=== PATIENT | female | born 1950 | race Caucasian/White ===

== ENCOUNTER 2020-03-07 11:35 | Outpatient (CLI) | payer MEDICARE, SELFPAY ==
[2020-03-07 12:06] LABS: Basophils Absolute Auto 0.1 K/mm3 (0.0-0.1); Basophils Percent Auto 0.8 % (0.2-1.2); Eosinophils Percent Auto 0.5 % (0-4.4); Hematocrit 32.2 % (37.0-47.0); Hemoglobin 10.2 g/dL (12.0-15.0); Immature Granulocyte Absolute 0.02 K/mm3 (0.00-0.031); Immature Granulocyte Percent A 0.3 % (0-0.5); Immature Platelet Fraction Pct 4.7 % (0.9-11.2); Lymphocytes Percent Auto 32.7 % (18.3-44.2); Mean Corpuscular HGB Conc 31.7 g/dl (32-36); Mean Corpuscular Hemoglobin 34.1 pg (26-34); Mean Corpuscular Volume 107.7 fl (80-100); Mean Platelet Volume 11.1 fl (7.4-10.4); Monocytes Absolute Auto 0.3 K/mm3 (0.1-0.6); Monocytes Percent Auto 5.3 % (2.6-8.5); Neutrophils Absolute Auto 3.9 K/mm3 (1.3-6.7); Neutrophils Percent Auto 60.4 % (45.5-73.1); Platelet Count Result 92 k/mm3 (150-375); Red Blood Count 2.99 M/mm3 (4.2-5.4); Red Cell Distribution Width 16.9 % (11.5-14.5); White Blood Count 6.4 K/mm3 (4.5-10.0)
[2020-03-07 13:34] LABS: Iron 112 ug/dL (37-170)
[2020-03-07 13:43] LABS: Alanine Aminotransferase 22 U/L (4-35); Alkaline Phosphatase 88 U/L (38-126); Anion Gap 7 mmol/L (8-16); Aspartate Amino Transferase 56 U/L (14-36); Bilirubin,Total 0.8 mg/dL (0.2-1.3); Blood Urea Nitrogen 13 mg/dL (7-17); Carbon Dioxide 27 mmol/L (22-30); Chloride 102 mmol/L (98-107); Estimated Glomerular Filt Rate 37; Glucose 87 mg/dL (65-105); Lactate Dehydrogenase 743 U/L (313-618); Potassium 4.1 mmol/L (3.4-5.0); Sodium 136 mmol/L (137-145)
[2020-03-07 13:45] LABS: Percent Iron Saturation 33 % (20-50)
[2020-03-07 14:40] LABS: Folic Acid 3.3 ng/mL (2.76->20)
== END 2020-03-07 11:36 | disposition home or self-care (01) ==
LOC: ANHLAB 11:42
PROVIDERS: Visit Provider Internal Medicine Hematology & Oncology
DX: D61.818 Other pancytopenia (principal)
CPT/HCPCS: 36415; 80053; 82607; 82728; 82746; 83540; 83550; 83615; 85025; 85055

== ENCOUNTER 2020-03-21 13:38 | Outpatient (CLI) | payer MEDICARE, SELFPAY ==
[2020-03-21 17:23] LABS: Immunoglobulin G 2312 mg/dL (700-1600); Immunoglobulin M 67 mg/dL (40-230)
[2020-03-21 17:46] LABS: Immunoglobulin A 951 mg/dL (70-400)
[2020-03-23 22:15] LABS: Kappa\\Lambda Light Chains 1.33 (0.26-1.65); Lambda Light Chain 88.3 mg/L (5.7-26.3)
[2020-03-24 06:06] LABS: Albumin 3.6 g/dL (3.8-4.8); Alpha 1 Globulin 0.2 g/dL (0.2-0.3); Alpha 2 Globulin 0.6 g/dL (0.5-0.9); Beta 1 Globulin 0.5 g/dL (0.4-0.6); Gamma Globulin 2.3 g/dL (0.8-1.7); Protein, Total 7.8 g/dL (6.1-8.1)
== END 2020-03-21 13:39 | disposition home or self-care (01) ==
PROVIDERS: Visit Provider Internal Medicine Hematology & Oncology
DX: R77.9 Abnormality of plasma protein, unspecified (principal)
CPT/HCPCS: 36415; 82784; 83883; 84155; 84165; 86334

== ENCOUNTER 2020-04-18 09:01 | Outpatient (CLI) | payer MEDICARE, SELFPAY ==
[2020-04-18 09:16] LABS: Basophils Absolute Auto 0.1 K/mm3 (0.0-0.1); Basophils Percent Auto 0.8 % (0.2-1.2); Eosinophils Absolute Auto 0.1 K/mm3 (0-0.3); Eosinophils Percent Auto 0.9 % (0-4.4); Hematocrit 36.2 % (37.0-47.0); Hemoglobin 11.6 g/dL (12.0-15.0); Immature Granulocyte Absolute 0.02 K/mm3 (0.00-0.031); Immature Granulocyte Percent A 0.3 % (0-0.5); Lymphocytes Absolute Auto 2.39 K/mm3 (0.9-3.2); Lymphocytes Percent Auto 36.7 % (18.3-44.2); Mean Corpuscular Hemoglobin 34.1 pg (26-34); Mean Corpuscular Volume 106.5 fl (80-100); Mean Platelet Volume 10.3 fl (7.4-10.4); Monocytes Absolute Auto 0.3 K/mm3 (0.1-0.6); Monocytes Percent Auto 4.6 % (2.6-8.5); Neutrophils Absolute Auto 3.7 K/mm3 (1.3-6.7); Neutrophils Percent Auto 56.7 % (45.5-73.1); Platelet Count Result 90 k/mm3 (150-375); Red Cell Distribution Width 14.6 % (11.5-14.5); White Blood Count 6.5 K/mm3 (4.5-10.0)
== END 2020-04-18 09:02 | disposition home or self-care (01) ==
PROVIDERS: Visit Provider Internal Medicine Hematology & Oncology
DX: D61.818 Other pancytopenia (principal)
CPT/HCPCS: 36415; 82607; 85025

== ENCOUNTER 2020-07-26 10:07 | Outpatient (CLI) | payer MEDICARE, SELFPAY ==
[2020-07-26 10:30] LABS: Basophils Absolute Auto 0.1 K/mm3 (0.0-0.1); Eosinophils Absolute Auto 0.1 K/mm3 (0-0.3); Eosinophils Percent Auto 1.1 % (0-4.4); Hematocrit 35.8 % (37.0-47.0); Hemoglobin 11.6 g/dL (12.0-15.0); Immature Granulocyte Absolute 0.01 K/mm3 (0.00-0.031); Immature Granulocyte Percent A 0.2 % (0-0.5); Lymphocytes Absolute Auto 1.99 K/mm3 (0.9-3.2); Lymphocytes Percent Auto 37.8 % (18.3-44.2); Mean Corpuscular HGB Conc 32.4 g/dl (32-36); Mean Corpuscular Hemoglobin 32.5 pg (26-34); Mean Corpuscular Volume 100.3 fl (80-100); Mean Platelet Volume 10.3 fl (7.4-10.4); Monocytes Absolute Auto 0.3 K/mm3 (0.1-0.6); Monocytes Percent Auto 5.9 % (2.6-8.5); Neutrophils Absolute Auto 2.8 K/mm3 (1.3-6.7); Platelet Count Result 98 k/mm3 (150-375); Red Blood Count 3.57 M/mm3 (4.2-5.4); Red Cell Distribution Width 14.8 % (11.5-14.5); White Blood Count 5.3 K/mm3 (4.5-10.0)
[2020-07-26 10:35] LABS: Blood Urea Nitrogen 19 mg/dL (8-26); Carbon Dioxide 27 mmol/L (22-30); Chloride 102 mmol/L (98-109); Estimated Glomerular Filt Rate 30; Glucose 81 mg/dL (70-105); Potassium 4.5 mmol/L (3.5-4.9); Sodium 138 mmol/L (138-146)
[2020-07-26 12:36] LABS: Iron 103 ug/dL (37-170)
[2020-07-26 12:40] LABS: Alanine Aminotransferase 48 U/L (4-35); Albumin Level 3.9 g/dL (3.5-5.1); Alkaline Phosphatase 104 U/L (38-126); Anion Gap 6 mmol/L (8-16); Aspartate Amino Transferase 90 U/L (14-36); Bilirubin,Total 0.8 mg/dL (0.2-1.3); Blood Urea Nitrogen 20 mg/dL (7-17); Calcium 9.3 mg/dL (8.4-10.2); Carbon Dioxide 28 mmol/L (22-30); Chloride 104 mmol/L (98-107); Estimated Glomerular Filt Rate 32; Glucose 85 mg/dL (65-105); Potassium 4.5 mmol/L (3.4-5.0); Sodium 138 mmol/L (137-145)
[2020-07-26 12:48] LABS: Percent Iron Saturation 30 % (20-50)
[2020-07-26 12:53] LABS: Immunoglobulin G 2512 mg/dL (700-1600); Immunoglobulin M 66 mg/dL (40-230)
[2020-07-26 13:17] LABS: Immunoglobulin A 986 mg/dL (70-400)
[2020-07-26 13:46] LABS: Folic Acid 8.7 ng/mL (2.76->20)
[2020-07-28 10:52] LABS: Kappa\\Lambda Light Chains 1.73 (0.26-1.65); Lambda Light Chain 70.3 mg/L (5.7-26.3)
[2020-07-30 04:30] LABS: Albumin 3.7 g/dL (3.8-4.8); Alpha 1 Globulin 0.3 g/dL (0.2-0.3); Alpha 2 Globulin 0.7 g/dL (0.5-0.9); Beta 1 Globulin 0.6 g/dL (0.4-0.6); Gamma Globulin 2.5 g/dL (0.8-1.7); Protein, Total 8.4 g/dL (6.1-8.1)
== END 2020-07-26 10:08 | disposition home or self-care (01) ==
LOC: ANHLAB 10:09
PROVIDERS: PCP Family Medicine Adolescent Medicine; Visit Provider Internal Medicine Hematology & Oncology
DX: D61.818 Other pancytopenia (principal); R77.9 Abnormality of plasma protein, unspecified
CPT/HCPCS: 36415; 80048; 80053; 82607; 82728; 82746; 82784; 83540; 83550; 83883; 84155; 84165; 85025; 86334

== ENCOUNTER → 2020-08-28 07:38 | Outpatient (CLI) | payer MEDICARE, SELFPAY ==
--- NOTE | ~2020-08-28 | XR_ITS ---
EXAMINATION: XR hand BI arthritis min 3V EXAM DATE: 08/28/2020 08:51 INDICATION: M32.9 - Systemic lupus erythematosus, unspecified . TECHNIQUE: Right hand frontal, lateral and oblique projections obtained and reviewed. Left hand fron jose rafael, lateral and oblique projections obtained and reviewed. Catchers projection of both hands. There is no prior study for comparison. FINDINGS: Right hand: There is mild to moderate 1st carpometacarpal joint, otherwise mild polyarticular primary osteoarthritis. No appreciable subluxations. There are no acute fractures or dislocations identifie d. There is no subcutaneous gas. The soft tissue is unremarkable. There are no radiopaque foreign bodies. There are no bony erosions identified. Left hand: There is mild to moderate left 1st metacarpophalangeal joint subluxation; ligamentous laxi ty can be characteristic for lupus. Mild to moderate arthritis at this joint and otherwise relatively mild primary osteoarthritis of the interphalangeal joints. There are no bony erosions identified. Th ere are no acute fractures or dislocations identified. There is no subcutaneous gas. The soft tissu e is unremarkable. Ring. IMPRESSION: 1. Mild to moderate left 1st MCP joint subluxation and arthritis. 2. Right hand polyarticular osteoarthritis, mild to moderate at 1st CMC joint. Reviewed, dictated and finalized at location B. DRAWER
== END ==
PROVIDERS: PCP Family Medicine Adolescent Medicine; Visit Provider Internal Medicine
DX: M32.9 Systemic lupus erythematosus, unspecified (principal); M18.0 Bilateral primary osteoarthritis of first carpometacarpal joints; M19.042 Primary osteoarthritis, left hand; M19.041 Primary osteoarthritis, right hand
CPT/HCPCS: 73130

== ENCOUNTER 2020-08-28 08:19 | Outpatient (CLI) | payer MEDICARE, SELFPAY ==
[2020-08-28 08:50] LABS: Basophils Percent Auto 0.5 % (0.2-1.2); Eosinophils Absolute Auto 0.1 K/mm3 (0-0.3); Eosinophils Percent Auto 1.5 % (0-4.4); Hematocrit 32.5 % (37.0-47.0); Hemoglobin 10.8 g/dL (12.0-15.0); Immature Granulocyte Absolute 0.01 K/mm3 (0.00-0.031); Immature Granulocyte Percent A 0.2 % (0-0.5); Lymphocytes Absolute Auto 1.18 K/mm3 (0.9-3.2); Lymphocytes Percent Auto 29.4 % (18.3-44.2); Mean Corpuscular HGB Conc 33.2 g/dl (32-36); Mean Corpuscular Volume 99.4 fl (80-100); Mean Platelet Volume 10.4 fl (7.4-10.4); Monocytes Absolute Auto 0.4 K/mm3 (0.1-0.6); Neutrophils Absolute Auto 2.3 K/mm3 (1.3-6.7); Neutrophils Percent Auto 58.4 % (45.5-73.1); Platelet Count Result 96 k/mm3 (150-375); Red Blood Count 3.27 M/mm3 (4.2-5.4); Red Cell Distribution Width 15.2 % (11.5-14.5)
[2020-08-28 13:40] LABS: Alanine Aminotransferase 57 U/L (4-35); Albumin Level 3.8 g/dL (3.5-5.1); Alkaline Phosphatase 88 U/L (38-126); Anion Gap 5 mmol/L (8-16); Aspartate Amino Transferase 90 U/L (14-36); Bilirubin,Total 0.7 mg/dL (0.2-1.3); Blood Urea Nitrogen 20 mg/dL (7-17); CRP 2.5 mg/dL (<1.0); Calcium 8.9 mg/dL (8.4-10.2); Carbon Dioxide 27 mmol/L (22-30); Chloride 103 mmol/L (98-107); Estimated Glomerular Filt Rate 37; Glucose 88 mg/dL (65-105); Potassium 4.3 mmol/L (3.4-5.0); Rheumatoid Factor 26.3 IU/ML (<12); Sodium 135 mmol/L (137-145)
[2020-08-29 08:21] LABS: Erythrocyte Sedimentation Rate 117 mm/hr (0-20)
[2020-08-31 11:15] LABS: Anti Cyclic Citrullinated Pept <16 Units (<20)
[2020-09-01 00:15] LABS: Anti Nuclear Antibody Titer >=1:1280 (Negative)
[2020-09-01 09:27] LABS: SS-A >8.0; SS-B <1.0
[2020-09-01 09:41] LABS: SM Antibody <1.0; SM/RNP Antibody <1.0
== END 2020-08-28 08:20 | disposition home or self-care (01) ==
LOC: ANHLAB 08:21
PROVIDERS: PCP Family Medicine Adolescent Medicine; Visit Provider Internal Medicine
DX: M32.9 Systemic lupus erythematosus, unspecified (principal); M19.90 Unspecified osteoarthritis, unspecified site
CPT/HCPCS: 36415; 80053; 85025; 85652; 86038; 86039; 86140; 86200; 86225; 86235; 86430

== ENCOUNTER 2020-09-26 09:26 | Outpatient (CLI) | payer MEDICARE, SELFPAY ==
[2020-09-26 11:02] LABS: Add Urine Microscopic? YES
[2020-09-26 11:03] LABS: Color Urine Light Yellow (Yellow)
[2020-09-26 11:04] LABS: Appearance Urine Sl Cloudy (Clear); Bilirubin Urine Negative (Negative); Blood Urine 2+ (Negative); Glucose Urine UA Negative (Negative); Ketones Urine Negative (Negative); Nitrate Urine Positive (Negative); Protein Urine Negative (Negative); Urobilinogen Urine 0.2 mg/dL (<2.0)
[2020-09-26 11:05] LABS: Leukocyte Esterase Ur 1+ LEU/UL (Negative)
[2020-09-26 11:27] LABS: Squamous Epithelial Cell Urine Moderate /hpf (Few)
[2020-09-26 11:28] LABS: Bacteria Urine 4+ /hpf
== END 2020-09-26 09:27 | disposition home or self-care (01) ==
LOC: ANHLAB 09:28
PROVIDERS: PCP Family Medicine Adolescent Medicine; Visit Provider Internal Medicine
DX: M32.9 Systemic lupus erythematosus, unspecified (principal); M19.90 Unspecified osteoarthritis, unspecified site
CPT/HCPCS: 81001; 87077; 87086; 87088; 87186

== ENCOUNTER 2021-02-27 08:38 | Outpatient (CLI) | payer MEDICARE, SELFPAY ==
--- NOTE | ~2021-02-27 | XR_ITS ---
EXAMINATION: XR chest 2V DATE: 02/27/2021 09:10 INDICATION: Elevated erythrocyte sedimentation rate. TECHNIQUE: Frontal and lateral views of the chest were obtained. COMPARISON: Chest single view 10/25/2014 FINDINGS: There is chronic mild elevation left hemidiaphragm. There is mild atelectasis at the lung b ases. There is a 1.6 cm nodule at the junction of right mid and upper lung zones. No pleural effusion or pneumothorax. The heart size is normal. Median sternotomy wires and mediastinal surgical clips ar e seen, likely from prior coronary artery bypass grafting. IMPRESSION: 1. 1.6 cm nodule at the junction of right mid and upper lung zone suspicious for primary bronchogenic carcinoma. Noncontrast chest CT is recommended. I called this result to Dr. Menendez. 2. Mild atelectasis at the lung bases. Reviewed, dictated and finalized at location A. IMPRESSION: 1. 1.6 cm nodule at the junction of right mid and upper lung zone suspicious fo r primary bronchogenic carcinoma. Noncontrast chest CT is recommended. I called this result to Dr. Menendez. 2. Mild atelectasis at the lung bases.
== END 2021-02-27 08:39 | disposition home or self-care (01) ==
PROVIDERS: PCP Family Medicine Adolescent Medicine; Visit Provider Internal Medicine
DX: R70.0 Elevated erythrocyte sedimentation rate (principal); R91.1 Solitary pulmonary nodule
CPT/HCPCS: 71046

== ENCOUNTER 2021-03-07 09:11 | Outpatient (CLI) | payer MEDICARE, SELFPAY ==
--- NOTE | ~2021-03-07 | CT_ITS ---
EXAMINATION: CT diagnostic chest w con DATE: 03/07/2021 09:49 INDICATION: Lung nodule TECHNIQUE: Transaxial computed tomographic images of the chest were obtained after the administration of 75 cc of Omnipaque 350 intravenous contrast. The dose-length product (DLP) was 344.68 mGy-cm. Ite rative reconstruction was used. COMPARISON: None FINDINGS: There is a 2.1 x 1.5 cm nodule in the superior segment of the right lower lobe. There is de pendent atelectasis. There is mild interlobular septal thickening. No pneumothorax is identified. No pathologically enlarged thoracic lymph nodes are identified. The heart size is normal. There are no p leural effusions. Changes of coronary artery bypass grafting are noted. There is severe thoracic spon dylosis. IMPRESSION: 1. Right lower lobe nodule concerning for primary bronchogenic carcinoma. CT-guided biopsy is recomme nded. Reviewed, dictated and finalized at location A. IMPRESSION: 1. Right lower lobe nodule concerning for primary bronchogenic carcinoma. CT-gu ided biopsy is recommended.
[2021-03-07 09:41] LABS: Estimated Glomerular Filt Rate 34
== END 2021-03-07 09:12 | disposition home or self-care (01) ==
LOC: ANHIMG 09:12
PROVIDERS: PCP Family Medicine Adolescent Medicine; Visit Provider Internal Medicine
DX: R91.8 Other nonspecific abnormal finding of lung field (principal)
CPT/HCPCS: 71260; Q9967

== ENCOUNTER 2021-04-26 09:50 | Outpatient (CLI) | payer MEDICARE, SELFPAY ==
--- NOTE | ~2021-04-26 | US_ITS ---
EXAMINATION: US renal BI EXAM DATE: 04/26/2021 10:43 INDICATION: Type 2 diabetes. TECHNIQUE: Multiple grayscale and Doppler images of the kidneys were obtained (by a technologist who performed the scan) and subsequently reviewed. There is no prior study for comparison. FINDINGS: Right kidney: There is normal contour and echogenicity. It measures 11.1 x 7.2 x 6.4 centimeters. T here are no focal renal lesions identified. There is no hydronephrosis. Left kidney: There is normal contour and echogenicity. It measures 8.8 x 4.1 x 4.7 centimeters. The re are no focal renal lesions identified. There is no hydronephrosis. Bladder unremarkable. Bladder volume was 56 mL, mildly distended. Reportedly patient was unable to v oid further IMPRESSION: Mildly distended bladder, unable to void this could indicate small post void residual. So nographically unremarkable kidneys. Reviewed, dictated and finalized at location A. IMPRESSION: Mildly distended bladder, unable to void this could indicate small post void residual. Sonographically unremarkable kidneys.
== END 2021-04-26 09:51 | disposition home or self-care (01) ==
LOC: ANHIMG 09:51
PROVIDERS: PCP Family Medicine Adolescent Medicine; Visit Provider Internal Medicine Nephrology
DX: E11.9 Type 2 diabetes mellitus without complications (principal); I25.5 Ischemic cardiomyopathy; E78.00 Pure hypercholesterolemia, unspecified; L93.0 Discoid lupus erythematosus; I25.10 Atherosclerotic heart disease of native coronary artery without angina pectoris; I50.22 Chronic systolic (congestive) heart failure; E66.9 Obesity, unspecified; N18.32 Chronic kidney disease, stage 3b
CPT/HCPCS: 76775

== ENCOUNTER 2021-11-16 09:50 | Outpatient (CLI) | payer MEDICARE, SELFPAY ==
[2021-11-21 13:07] LABS: Mitochondrial (M2) Ab (IgG) <=20.0 U (<=20.0)
== END 2021-11-16 09:51 | disposition home or self-care (01) ==
PROVIDERS: PCP Family Medicine Adolescent Medicine; Visit Provider Internal Medicine Gastroenterology
DX: M32.9 Systemic lupus erythematosus, unspecified (principal)
CPT/HCPCS: 36415; 83520

== ENCOUNTER 2021-12-11 08:16 | Outpatient (CLI) | payer MEDICARE, SELFPAY ==
[2021-12-11 09:13] LABS: Iron 68 ug/dL (37-170)
[2021-12-11 09:28] LABS: Percent Iron Saturation 30 % (20-50)
[2021-12-11 10:05] LABS: Vitamin B12 > 1000.0 pg/mL (239-931)
== END 2021-12-11 08:17 | disposition home or self-care (01) ==
PROVIDERS: PCP Family Medicine Adolescent Medicine; Visit Provider Internal Medicine Hematology & Oncology
DX: D50.9 Iron deficiency anemia, unspecified (principal)
CPT/HCPCS: 36415; 82607; 82728; 83540; 83550

== ENCOUNTER 2021-12-26 08:50 | Outpatient (CLI) | payer MEDICARE, SELFPAY ==
--- NOTE | ~2021-12-26 | CT_ITS ---
EXAMINATION: CT diagnostic chest w con DATE: 12/26/2021 09:16 INDICATION: Shortness of breath, tobacco use TECHNIQUE: Transaxial computed tomographic images of the chest were obtained after the administration of 75 cc of Omnipaque 300 intravenous contrast. The dose-length product (DLP) was 223.63 mGy-cm. Ite rative reconstruction was used. COMPARISON: 03/07/2021 FINDINGS: There is a stable 2.1 x 1.5 cm nodule in the superior segment of the right lower lobe. [place] tional smaller nodules of the lungs are stable. There is mild dependent atelectasis. No pleural effus ion or pneumothorax. The heart size is normal. There are changes of coronary artery bypass grafting. There is severe thoracic spondylosis. IMPRESSION: 1. Stable right lower lobe nodule which remains concerning for primary bronchogenic carcinoma. Reviewed, dictated and finalized at location B. IMPRESSION: 1. Stable right lower lobe nodule which remains concerning for primary bronchog enic carcinoma.
== END 2021-12-26 08:51 | disposition home or self-care (01) ==
PROVIDERS: PCP Family Medicine Adolescent Medicine; Visit Provider Internal Medicine Hematology & Oncology
DX: R06.00 Dyspnea, unspecified (principal); R91.1 Solitary pulmonary nodule
CPT/HCPCS: 71260; Q9967

== ENCOUNTER 2022-01-10 09:04 | Outpatient (CLI) | payer MEDICARE, SELFPAY ==
--- NOTE | ~2022-01-10 | PE_ITS ---
EXAMINATION: PET skull to mid thigh DATE: 01/10/2022 10:51 INDICATION: Right lung lower lobe mass. TECHNIQUE: Blood glucose level was 99 mg/dL. 10.461 mCi of 18-fluorodeoxyglucose (18-FDG) was adminis tered i.v. Low dose computed tomography (CT) images were acquired from the base of the brain to the p roximal thighs for attenuation correction and anatomic localization. Automated exposure control was e mployed. Dose-length product (DLP) was 477 mGy-cm. Positron emission tomography (PET) images were acq uired in the same distribution. COMPARISON: Chest CT 12/26/21 FINDINGS: Head/neck: There is increased activity in the pharynx, oral cavity, and paraspinal muscles without ab normal CT correlate, likely physiologic. There are no pathologically enlarged lymph nodes. Chest: There is mild scarring at the lung apices without increased activity. There is a 1.9 cm nodule in superior segment right lower lobe with maximum SUV of 11.5. No pleural effusion. The heart size i s normal. There are coronary artery calcifications. There are changes of coronary artery bypass graft ing. No pericardial effusion. Abdomen/pelvis/proximal thighs: The liver is normal. There are gallstones in the gallbladder, which i s normal in size. The spleen, pancreas, adrenal glands, and left kidney are normal. Right kidney is i nferior to its expected position, a normal variant. There are no dilated loops of bowel. The appendix is normal. There are no pathologically enlarged lymph nodes. There is no free intraperitoneal fluid. There is no osseous malignancy. IMPRESSION: 1. 1.9 cm nodule in superior segment right lower lobe with increased activity, consistent with primar y bronchogenic carcinoma. CT-guided biopsy is recommended. Reviewed, dictated and finalized at location A. IMPRESSION: 1. 1.9 cm nodule in superior segment right lower lobe with increased activity, consistent with primary bronchogenic carcinoma. CT-guided biopsy is recommended .
[2022-01-10 09:28] LABS: Glucose Point of Care 99 mg/dl (65-105)
== END 2022-01-10 09:05 | disposition home or self-care (01) ==
PROVIDERS: PCP Family Medicine Adolescent Medicine; Visit Provider Internal Medicine Hematology & Oncology
DX: R91.8 Other nonspecific abnormal finding of lung field (principal)
CPT/HCPCS: 78815; A9552

== ENCOUNTER 2022-01-21 08:48 | Outpatient (CLI) | payer MEDICARE, SELFPAY ==
--- NOTE | 2022-01-15 15:25 | PC.NURSE ---
Addendum entered by Romi Canchola RN 01/15/22 15:28: FASTING FOR 6 HOURS BEFORE PROCEDURE Original Note: Report to the Outpatient Waiting Room, entrance under the green pavilion located off [facility], at time _0900_ on date _01/21/22__. OR Time: 1100__. - You and your visitor will be asked a series of questions to screen for COVID 19 for your protection. - Only one visitor is allowed at this time. - The patient visitor is requested to leave or wait in car when not with patient. - A mask is required within the hospital. Patients may have clear liquids (water, carbonated beverages, clear teas, apple juice) until 3 hours prior to surgery with a maximum of 20 ounces. - No food from midnight until time of surgery - Infants may have breast milk until 4 hours before surgery, infant formula 6 hours prior to surgery. - Children will be allowed to drink immediately following surgery. If applicable, please bring a bottle or sippy cup to assist with drinking. Juice, water, soda, and popsicles are readily available. For infants on formula, please bring formula the day of surgery. Pacifiers are allowed. Take the following medications with a SIP of water the morning of surgery: ____ROUTINE HOME MEDS Medications to discontinue per physician ASPIRIN -CALL DR. BLACKWOOD RE: WHEN/IF TO DISCONTINUE BEFORE PROCEDURE Date to take last dose Please no make-up, nail maori, hairspray, perfume, deodorant, or body powder the day of surgery. No jewelry (including any body piercings) or valuables the day of surgery, leave them at home. Please take a shower or bath the night before, or the morning of, surgery with an antibacterial soap. Wear comfortable, loose fitting clothing. Children are encouraged to wear pajamas. - Jewelry must be removed prior to entering the operating room. Rings and piercings that are not removed may be cut off. - The hospital will not accept responsibility for valuables. - Please leave all valuables, including medications, at home the day of surgery. If you are going home after surgery, a licensed power screwdriver operator must drive you home. - NO public transportation without another adult. - We recommend that an adult stay with you for 24 hours following discharge. - We also recommend that you do not drive, make important decision, drink alcoholic beverages, or take any drugs that were not prescribed by your health care provider for at least 24 hours after your discharge time. For Pediatric surgeries, we recommend two adults accompany the child home (only one inside the building at this time). Follow any additional instructions given to you from your surgeon. If you or anyone in your household have experienced Covid symptoms in the past week, please notify your surgeon or the nurse liaison at the phone number below for possible testing. Telephone instructions given to __BUNNY and asked if any additional questions and then verbalized understanding. Patient advised to call surgeon office or pre surgery nurse liaison [phone] if any additional questions.
[2022-01-21] VITALS (9 sets, daily range): BP systolic 119–136; BP diastolic 46–67; PULSE 75–97; RESP 16–20; TEMP 36.6; O2SAT 95–100
--- NOTE | ~2022-01-21 | CT_ITS ---
EXAMINATION: CT biopsy lung w/imaging DATE: 01/21/2022 11:06 INDICATION: Right lung nodule. TECHNIQUE: The procedure including the risks, benefits, and alternatives and possibility of chest tub e placement were discussed with the patient. Risks discussed included infection, hemorrhage, approxim ately 1/3 risk of pneumothorax, approximately 1/10 risk of pneumothorax severe enough to warrant ches t tube placement, and rarely . The patient understood the risks and agreed to proceed. The patie nt was placed prone. The skin overlying the right lung was prepped and draped in sterile fashion. A nesthetic was administered with 1% lidocaine subcutaneously. A 19 gauge outer needle was advanced un salomón CT guidance to the lesion of interest. A 20 gauge core biopsy needle was then used to obtain 3 co re biopsy specimens. The needle was removed and the entry site was cleaned and dressed. The mA was ad justed according to patient size. Iterative reconstruction technique was employed. The dose-length pr oduct was 160.44 mGy-cm. There were no immediate complications. FINDINGS: CT images demonstrate the outer needle tip in a 1.9 cm nodule in superior segment right low er lobe. IMPRESSION: 1. CT-guided core needle biopsy of a 1.9 cm nodule in superior segment right lower lobe. Reviewed, dictated and finalized at location A. IMPRESSION: 1. CT-guided core needle biopsy of a 1.9 cm nodule in superior segment right l ower lobe.
--- NOTE | ~2022-01-21 | XR_ITS ---
EXAMINATION: XR chest 1V portable DATE: 01/21/2022 13:37 INDICATION: Right lung nodule status post percutaneous biopsy. TECHNIQUE: A single frontal view of the chest was obtained. COMPARISON: Chest single view at 11:48 AM FINDINGS: There are airspace opacities in superior segment right lower lobe. No pleural effusion or p neumothorax. The heart size is normal. Median sternotomy wires and mediastinal surgical clips are see n, likely from prior coronary artery bypass grafting. IMPRESSION: 1. Stable airspace opacities in superior segment right lower lobe, consistent with postbiopsy hemorrh age. Reviewed, dictated and finalized at location A. IMPRESSION: 1. Stable airspace opacities in superior segment right lower lobe, consistent w ith postbiopsy hemorrhage.
--- NOTE | ~2022-01-21 | XR_ITS ---
EXAMINATION: XR chest 1V portable DATE: 01/21/2022 11:55 INDICATION: Right lung nodule status post percutaneous biopsy. TECHNIQUE: A single frontal view of the chest was obtained. COMPARISON: Chest single view at 11:09 AM FINDINGS: There are lucencies in the lungs, consistent with emphysema. There are airspace opacities i n superior segment right lower lobe with interval improvement. No pleural effusion or pneumothorax. T he heart size is normal. Median sternotomy wires and mediastinal surgical clips are seen, likely from prior coronary artery bypass grafting. IMPRESSION: 1. Improved airspace opacities in superior segment right lower lobe, consistent with postbiopsy hemor rhage. 2. Emphysema. Reviewed, dictated and finalized at location A. IMPRESSION: 1. Improved airspace opacities in superior segment right lower lobe, consistent with postbiopsy hemorrhage. 2. Emphysema.
--- NOTE | ~2022-01-21 | XR_ITS ---
EXAMINATION: XR chest 1V DATE: 01/21/2022 11:10 INDICATION: Right lung nodule status post percutaneous biopsy. TECHNIQUE: A single frontal view of the chest was obtained. COMPARISON: Chest 2 views 02/27/2021 FINDINGS: There are airspace opacities in superior segment right lower lobe. There are lucencies in t he lungs, consistent with emphysema. No pleural effusion or pneumothorax. The heart size is normal. M edian sternotomy wires and mediastinal surgical clips are seen, likely from prior coronary artery byp ass grafting. IMPRESSION: 1. Airspace opacities in superior segment right lower lobe, consistent with postbiopsy hemorrhage. 2. Emphysema. Reviewed, dictated and finalized at location A. IMPRESSION: 1. Airspace opacities in superior segment right lower lobe, consistent with pos tbiopsy hemorrhage. 2. Emphysema.
[2022-01-21 09:44] LABS: Prothrombin Time 12.9 Seconds (11.1-14.7)
== END 2022-01-21 14:03 | disposition home or self-care (01) ==
PROVIDERS: PCP Family Medicine Adolescent Medicine; Referring Provider Internal Medicine Hematology & Oncology; Visit Provider Radiology Diagnostic Radiology
PROC: BB24ZZZ Computerized Tomography (CT Scan) of Bilateral Lungs (ICD-10-PCS; CPT 32408; principal; 2022-01-21 11:00)
DX: R91.8 Other nonspecific abnormal finding of lung field (principal); C34.91 Malignant neoplasm of unspecified part of right bronchus or lung
CPT/HCPCS: 32408; 36415; 71045; 85610; 88305

== ENCOUNTER 2022-02-13 14:29 | Outpatient (CLI) | payer MEDICARE, SELFPAY ==
--- NOTE | 2022-02-14 08:25 | WPDPFTINT ---
PFT Procedure Performed PFT Procedure Performed Plethysmography (Lung Vol) Diffusing Cap (DLCO) Flow Vol Loop Spirometry w/o Bronchodil PFT Interpretation This is a pulmonary function test with spirometry, plethysmography and diffusing capacity. The test was performed and results interpreted in accordance with the 2019 and 2005 ATS/ERS Task Force guidelines respectively using the Global Lung Function Initiative-2012 reference equations. Patient demonstrated good effort and cooperation. Reproducibility criteria were met. The quality of the spirometry maneuver was Grade U. Patient had difficulty with the testing and was unable to fully . Findings: Spirometry: the contour the expiratory and expiratory flow tracing are normal. The FVC is 1.78 L, 77% predicted. The FEV1 is 1.36 L, 75% predicted. The FEV1: FVC ratio 76%. Plethysmography: The total lung capacity is 3.40 L, 79% predicted. The functional residual capacity is 2.63 L, 108% predicted. The residual volume is 1.49 L, 75% predicted. Diffusion capacity: The diffusing capacity unadjusted for hemoglobin and carboxyhemoglobin is 10.8, 59% predicted. The diffusing capacity adjusted for alveolar volume is 1.59, 35% predicted. Impression: The patient was unable to fully . Using the best available data, the spirometry is normal without evidence of an obstructive abnormality. The lung volumes are normal. The diffusing capacity unadjusted for hemoglobin is moderately decreased and remains severely decreased when adjusted for alveolar volume. There are no prior studies for comparison
== END 2022-02-13 14:30 | disposition home or self-care (01) ==
LOC: ANHPFT 14:31
PROVIDERS: PCP Family Medicine Adolescent Medicine; Visit Provider Internal Medicine Hematology & Oncology
DX: C34.31 Malignant neoplasm of lower lobe, right bronchus or lung (principal)
CPT/HCPCS: 94375; 94726; 94729

== ENCOUNTER 2022-04-05 10:56 | Outpatient (CLI) | payer MEDICARE, SELFPAY ==
[2022-04-05 11:31] LABS: Eosinophils Absolute Auto 0.3 K/mm3 (0-0.3); Eosinophils Percent Auto 6.3 % (0-4.4); Hematocrit 32.7 % (37.0-47.0); Hemoglobin 9.9 g/dL (12.0-15.0); Immature Granulocyte Absolute 0.02 K/mm3 (0.00-0.031); Immature Granulocyte Percent A 0.5 % (0-0.5); Lymphocytes Absolute Auto 1.66 K/mm3 (0.9-3.2); Lymphocytes Percent Auto 41.8 % (18.3-44.2); Mean Corpuscular HGB Conc 30.3 g/dl (32-36); Mean Corpuscular Volume 95.9 fl (80-100); Monocytes Absolute Auto 0.3 K/mm3 (0.1-0.6); Monocytes Percent Auto 8.3 % (2.6-8.5); Neutrophils Absolute Auto 1.7 K/mm3 (1.3-6.7); Neutrophils Percent Auto 42.1 % (45.5-73.1); Platelet Count Result 164 k/mm3 (150-375); Red Blood Count 3.41 M/mm3 (4.2-5.4); Red Cell Distribution Width 17.7 % (11.5-14.5)
[2022-04-05 11:40] LABS: INR 1.1; Prothrombin Time 13.6 Seconds (11.1-14.7)
[2022-04-05 11:41] LABS: Partial Thromboplastin Time 29.6 SECONDS (22.3-36.8)
== END 2022-04-05 10:57 | disposition home or self-care (01) ==
LOC: ANHSURGERY 11:03
PROVIDERS: PCP Family Medicine Adolescent Medicine; Visit Provider Surgery
DX: C34.91 Malignant neoplasm of unspecified part of right bronchus or lung (principal); Z01.818 Encounter for other preprocedural examination
CPT/HCPCS: 36415; 85025; 85610; 85730

== ENCOUNTER 2022-04-08 02:17 | Day surgery (SDC) | payer MEDICARE, SELFPAY ==
--- NOTE | 2022-04-04 11:01 | PC.NURSE ---
Report to the Outpatient Waiting Room, entrance under the green pavilion located off [facility], at time 1130 on date _04/08/22 . OR Time: _1330 . Time changes happen often and if your time is changed the preop area will call you the afternoon before. - You and your visitor will be asked to self-screen and do not enter if you have any COVID symptoms. - We encourage only one visitor and NO visitors under age 16 are allowed at this time. Your visitor will receive communication by the phone number that is given day of service. - The patient visitor is requested to social distance or may leave the building when not with patient due to restrictions. - A mask is required within the hospital. Patients may have clear liquids (water, carbonated beverages, clear teas, apple juice) until 3 hours prior to surgery with a maximum of 20 ounces. - No food from midnight until time of surgery - Infants may have breast milk until 4 hours before surgery, infant formula 6 hours prior to surgery. - Children will be allowed to drink immediately following surgery. If applicable, please bring a bottle or sippy cup to assist with drinking. Juice, water, soda, and popsicles are readily available. For infants on formula, please bring formula the day of surgery. Pacifiers are allowed. Take the following medications with a SIP of water the morning of surgery: ____LEVOTHYROXINE,_GABAPENTIN Medications to discontinue per physician __ALL VITAMINS AND SUPPLEMENTS 3 DAYS PRE OP Date to take last dose____04/04/22 Please no make-up, nail english, hairspray, perfume, deodorant, or body powder the day of surgery. No jewelry (including any body piercings) or valuables the day of surgery, leave them at home. Please take a shower or bath the night before, or the morning of, surgery with an antibacterial soap. Wear comfortable, loose fitting clothing. Children are encouraged to wear pajamas. - Jewelry must be removed prior to entering the operating room. Rings and piercings that are not removed may be cut off. - The hospital will not accept responsibility for valuables. - Please leave all valuables, including medications, at home the day of surgery. If you are going home after surgery, a licensed auto parts delivery driver must drive you home. - NO public transportation without another adult. - We recommend that an adult stay with you for 24 hours following discharge. - We also recommend that you do not drive, make important decision, drink alcoholic beverages, or take any drugs that were not prescribed by your health care provider for at least 24 hours after your discharge time. For Pediatric surgeries, we recommend two adults accompany the child home. Follow any additional instructions given to you from your surgeon. If you or anyone in your household have experienced Covid symptoms in the past week, please notify your surgeon or the nurse liaison at the phone number below for possible testing. Telephone instructions given to __PATIENT and asked if any additional questions and then verbalized understanding. Patient advised to call surgeon office or pre surgery nurse liaison [phone] if any additional questions.
[2022-04-04 11:18] VITALS: BMI 26.8
[2022-04-08] VITALS (7 sets, daily range): BP systolic 92–133; BP diastolic 42–58; PULSE 57–112; RESP 14–18; TEMP 36–36.2; O2SAT 95–100
--- NOTE | ~2022-04-08 | XR_ITS ---
EXAMINATION: XR fl guide central line place INDICATION: Port-A-Cath insertion TECHNIQUE: A single intraoperative fluoroscopic image is submitted for review. Total fluoroscopic kentrell e was 32.5 seconds. COMPARISON: None available FINDINGS: Fluoroscopic image demonstrates a right internal jugular Port-A-Cath ending with its tip in the distal superior vena cava. Please refer to procedure note for full details. IMPRESSION: 1. Right internal jugular Port-A-Cath ending with its tip in the distal superior vena cava. Please re bruce to procedure note for full details. Reviewed, dictated and finalized at location A. IMPRESSION: 1. Right internal jugular Port-A-Cath ending with its tip in the distal superio r vena cava. Please refer to procedure note for full details.
--- NOTE | ~2022-04-08 | XR_ITS ---
EXAMINATION: XR chest port-a-cath/central DATE: 04/08/2022 13:22 INDICATION: Port placement. TECHNIQUE: A single frontal view of the chest was obtained. COMPARISON: Chest single view 01/21/2022, PET CT 01/10/2022 FINDINGS: There is right lung volume loss, likely changes of right lower lobectomy. There is a diffus e interstitial pattern in the lungs, consistent with mild pulmonary edema. There is a small right ple ural effusion. No pneumothorax. The heart size is normal. Median sternotomy wires and mediastinal juliet gical clips are seen, likely from prior coronary artery bypass grafting. There is a right internal ju gular port with tip at superior cavoatrial junction. IMPRESSION: 1. Port tip at superior cavoatrial junction. 2. Mild pulmonary edema. 3. Small right pleural effusion. Reviewed, dictated and finalized at location B.
[2022-04-08 10:24] LABS: Glucose Point of Care 72 mg/dl (65-105)
[2022-04-08] MEDS: KETOROLAC 15 MG/ML VIAL (*BKC) IV PUSH (10:32)
--- NOTE | 2022-04-08 10:39 | WPDANESEPPF ---
Anes - Initial Pre Proc Eval Procedure: Operation Date: 04/08/22 13:30 Proposed Procedures p Insertion Branden Cath - Nino Zendejas MD Date/Time: 04/08/22 10:39 Surgeon: Nino Zendejas MD Pre Op Diagnosis: malig neoplasm lower lobe right lung Patient Data Age: 71 Gender: F Height: 1.45 m Weight: 57.4 kg Last Vital Signs Temp 36.0 C L 04/08/22 10:05 Pulse 64 04/08/22 10:05 Resp 16 04/08/22 10:05 BP 133/53 L 04/08/22 10:05 Pulse Ox 95 04/08/22 10:05 O2 Del Method Room Air 04/08/22 10:05 Allergies Allergy/AdvReac Type Severity Reaction Status Date / Time No Known Allergies Allergy Verified 04/08/22 10:15 Home Medications Medication Instructions Recorded Confirmed Type aspirin 81 mg tablet,delayed 81 mg PO DAILY 08/01/20 04/04/22 History release (Adult Aspirin Regimen) atorvastatin 20 mg tablet 20 mg PO DAILY 08/01/20 04/04/22 History clobetasol 0.05 % topical cream 1 applic topical DAILY 08/01/20 04/04/22 History losartan 25 mg tablet 25 mg PO DAILY 08/01/20 04/04/22 History cyanocobalamin (vitamin B-12) 1,000 mcg PO DAILY 01/15/22 04/04/22 History 1,000 mcg tablet ferrous sulfate 250 mg (50 mg 250 mg PO DAILY 01/15/22 04/04/22 History iron) tablet,extended release mycophenolate mofetil 250 mg 250 mg PO BID 01/15/22 04/04/22 History capsule levothyroxine 175 mcg tablet 175 mcg PO DAILY #90 tabs 02/01/22 04/04/22 Rx silver sulfadiazine 1 % topical 1 applic topical DAILY #85 grams 02/07/22 04/04/22 Rx cream gabapentin 100 mg capsule 100 mg PO BID 04/04/22 04/04/22 History metformin 500 mg tablet 500 mg PO DAILY 04/04/22 04/04/22 History Laboratory Tests 04/08/22 10:21 POC Capillary Glucose 72 mg/dl mg/dl (65-105) Patient hx anesthesia problems: none Family hx anesthesia problems: none Results Review: All pre-operative results and documents have been reviewed as part of the pre-operative evaluation. [facility] Past Medical History Medical History (Updated 04/08/22 @ 10:39 by Aniceto Mcbride MD) Abnormal CT scan, chest COPD (chronic obstructive pulmonary disease) Hypothyroidism, unspecified Lung cancer Systemic Lupus Erythematosus Unintentional weight loss Surgical History Surgical History (Updated 04/08/22 @ 10:39 by Aniceto Mcbride MD) History of lung biopsy History of open heart surgery Family History Family History Father Acute myocardial infarction Mother Alzheimers disease Social History Social History Smoking packs per day: 0.5 Smoking cigarettes per day: 10.0 Years smoked: 30 Smoking pack-years: 15.00 Smoking status: Former smoker Tobacco type: cigarettes Second hand tobacco smoke exposure: Yes Smoking end date: 01/21/22 Alcohol intake: never Substance use: never Substance use type: does not use Living arrangements: with family Gender identity (if verbalized by the patient): Female Spiritual care concerns: No Anes - Eval Final PreProcedure Day of Procedure 04/08/22 10:39 Patient weight: overweight Heart: regular rate and rhythm Lungs: decreased breath sounds Airway: Mallampati scale class II Neurological: alert and oriented Last oral intake: >/= 8 hours ASA classification: IV Emergent: no Anesthetic plan: proceed Anesthesia type and monitoring: general GIVS and standard monitoring Results Review: All pre-operative results and documents have been reviewed as part of the pre-operative evaluation. Informed Consent: The patient's anesthetic plan and its attendant risks and benefits were discussed with the patient/family/POA. Questions were solicited and answers provided to the satisfaction of the patient/family/POA.
[2022-04-08] MEDS: LACTATED RINGERS 1,000 ML 30 ML IV CONT (10:45)
--- NOTE | 2022-04-08 11:09 | WPDHPUPDATE1 ---
History and Physical Update Update Date/Time: 04/08/22 11:09 History and Physical has been reviewed, including an updated exam of the patient. There are NO changes in the patient's condition. Risks, benefits, and alternatives of placement of a fabrice cath have been discussed and questions answered. Patient agrees to proceed with procedure.
--- NOTE | 2022-04-08 11:09 | PM.HPGS ---
History of Present Illness History of Present Illness Consent: Risks, benefits, and alternatives of placement of a Port-A-Cath have been discussed and questions answered. Patient agrees to proceed with procedure. 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 She is now approximately 1 month status post right lower lobectomy. Her initial diagnosis was made by CT-guided biopsy of the right lower lobe lung mass on January 21, 2022. Patient also has a history of macrocytic anemia and thrombocytopenia. Review of Systems Constitutional: Constitutional: Reports no additional constitutional complaints, Reports fatigue and Denies malaise Eyes: Eyes: Denies change in vision and Denies loss of vision ENT: Reports Normal hearing present, Denies change in voice, Denies dizziness, Denies hoarseness and Denies sore throat Cardiovascular: Cardiovascular: Denies chest pain, Denies leg edema and Denies dyspnea Respiratory: Respiratory: Denies cough, Denies dyspnea and Denies wheezing Comments: Former smoker of cigarettes Known COPD Recent right lower lobe lobectomy of the lung for cancer Gastrointestinal: Gastrointestinal: Denies hematochezia, Denies change in bowel habits and Denies heartburn Genitourinary: Genitourinary: Denies urinary frequency and Denies urinary incontinence Neurologic: Reports Normal hearing present, Denies confusion, Denies dizziness, Denies loss of vision, Denies memory loss and Denies seizure-like activity Psychiatric: Psychiatric: Denies confusion, Denies depression and Denies memory loss Endocrine: Endocrine: Denies cold intolerance and Reports fatigue Comments: history of hypothyroidism Hematologic/Lymphatic: Hematologic/Lymphatic: Denies easy bleeding and Denies easy bruising Allergic/Immunologic: Allergic/Immunologic: Denies wheezing Comments: history of lupus PMFSH Past Medical History Medical History Abnormal CT scan, chest COPD (chronic obstructive pulmonary disease) Hypothyroidism, unspecified Lung cancer Systemic Lupus Erythematosus Unintentional weight loss Surgical History Surgical History History of lung biopsy History of open heart surgery Family History Family History Father Acute myocardial infarction Mother Alzheimers disease Social History Social History Smoking packs per day: 0.5 Smoking cigarettes per day: 10.0 Years smoked: 30 Smoking pack-years: 15.00 Smoking status: Former smoker Tobacco type: cigarettes Second hand tobacco smoke exposure: Yes Smoking end date: 01/21/22 Alcohol intake: never Substance use: never Substance use type: does not use Living arrangements: with family Gender identity (if verbalized by the patient): Female Spiritual care concerns: No Meds Home Medications and Allergies Home Medications Medication Instructions Recorded Confirmed Type aspirin 81 mg tablet,delayed 81 mg PO DAILY 08/01/20 04/04/22 History release (Adult Aspirin Regimen) atorvastatin 20 mg tablet 20 mg PO DAILY 08/01/20 04/04/22 History clobetasol 0.05 % topical cream 1 applic topical DAILY 08/01/20 04/04/22 History losartan 25 mg tablet 25 mg PO DAILY 08/01/20 04/04/22 History cyanocobalamin (vitamin B-12) 1,000 mcg PO DAILY 01/15/22 04/04/22 History 1,000 mcg tablet ferrous sulfate 250 mg (50 mg 250 mg PO DAILY 01/15/22 04/04/22 History iron) tablet,extended release mycophenolate mofetil 250 mg 250 mg PO BID 01/15/22 04/04/22 History capsule levothyroxine 175 mcg tablet 175 mcg PO DAILY #90 tabs 02/01/22 04/04/22 Rx
[2022-04-08] MEDS: ceFAZolin 2 GM/D5W 50 ML 2 GM/50 ML BAG IVPB (12:12)
[2022-04-08] MEDS: BUPIVACAINE/EPINEPHRINE 0.25% 50 ML VIAL INFILTRATE (12:46)
[2022-04-08] MEDS: HEPARIN SODIUM 5,000 UNITS/ML VIAL 5000 UNITS IRRIGATION (12:47)
[2022-04-08 13:29] LABS: Glucose Point of Care 99 mg/dl (65-105)
--- NOTE | 2022-04-08 16:01 | W.PM.PROC2 ---
Procedure Note - Detailed Date of Procedure 04/08/22 Pre-op Diagnosis malig neoplasm lower lobe right lung Post-op Diagnosis Same Procedure Performed 1. Placement of Branden-cath. 2. Use of US for vascular access site selection and visualization of needle access to vein. Surgeon Nino Zendejas MD Automotive Service Director Jessica [email or web address].OR ambulance assistant Anesthesia Local (with 0.5% Marcaine with epinepherine) and Other (GIVS) Indications right lung cancer with need for chemotherapy Findings The patient had a thin neck. Normal vascular anatomy in the right neck with a quite collapsible internal jugular vein. Description of Procedure Patient was seen and marked in the pre-op area prior to coming to the OR. Patient was brought to the operating room. Patient was placed supine on the operating table and general IV sedation was induced. The nurse pipe roller provided And continuous monitoring, oxygen, and IV sedation or general anesthesia with IV sedation as was appropriate for the patient's condition. See anesthesia notes). Patient's head was carefully turned to the left side while in the supine position and the patient's entire neck and anterior chest on both sides was prepped and draped in the usual sterile fashion. Following this the appropriate time-out was completed confirming procedure and patient. We confirmed that all the needed equipment was present in the room including the vascular ultrasound probe in machine. Following this the ultrasound probe was draped into the field and using the probe we carefully identified the carotid artery and jugular vein on the right neck. I then saved an image of the vascular anatomy of the neck, which documented the selected vessels patency and transferred it from the ultrasound machine to the Pollenizer chart. I marked the skin directly over the right internal jugular vein. I then used an 11 blade knife to make a small ayden in the skin. Following this, using the continuous ultrasound guidance, a Cook needle was placed through the skin incision and on into this vein. On the 1st pass it appeared that I was going toward the vein but it was somewhat collapsible and the needle went deeper than expected and when I bronson back on the syringe there was air that came back into the syringe. (Therefore, I was concerned about possible apical pneumothorax however chest x-ray done in the operating room after removing the drapes at the end of the procedure showed no sign of pneumothorax). We applied pressure to the site for about 30 seconds and then I again used the ultrasound to carefully aim for the somewhat collapsible movable right jugular vein. I was able to draw back good dark blood and then the guidewire passed easily into the central venous system. Once this was completed a guidewire using a J-tip was advanced through the needle and then the needle and the guidewire cover were withdrawn. C-arm fluoroscopy was used to confirm that the guidewire was nicely in the central venous system. Once this was confirmed with the C - arm, I preceded on by making the pocket for the port on the patient's anterior right chest approximately 3 centimeters below the clavicle overlying the chest wall. Local anesthetic was infiltrated into the skin where there was a transverse incision marked out. Incision was made and we made a pocket inferior to the incision with just a little dissection superior. The Bard low-profile port was tried in the pocket and seemed to fit well. Following this the catheter which had been placed on a tunneling device was tunneled from the port site on the anterior right chest up to the right neck where the small incision had been made slightly larger with an #11 blade knife. Then the catheter was pulled through so that we would have 15 centimeters to put into the central venous system once the dilation took place. Throughout this time we carefully monitor the heart rate and pulse oximetry and did not change. ( the patient did have an
== END 2022-04-08 15:05 | disposition home or self-care (01) ==
PROVIDERS: PCP Family Medicine Adolescent Medicine; Visit Provider Surgery
PROC: (CPT 36561; principal; 2022-04-08 13:30)
DX: C7A.8 Other malignant neuroendocrine tumors (principal); D53.9 Nutritional anemia, unspecified; J44.9 Chronic obstructive pulmonary disease, unspecified; E03.9 Hypothyroidism, unspecified; M32.9 Systemic lupus erythematosus, unspecified; Z87.891 Personal history of nicotine dependence; Z79.82 Long term (current) use of aspirin; Z79.84 Long term (current) use of oral hypoglycemic drugs; Z90.2 Acquired absence of lung [part of]
CPT/HCPCS: 36561; 36415; 76937; 77001; 82948; 85025; 85610; 85730; C1788; J0690; J1644; J1885; J2405; J2704; J3010; J7030; J7120

== ENCOUNTER 2022-04-23 08:51 | Outpatient (CLI) | payer MEDICARE, SELFPAY ==
--- NOTE | ~2022-04-23 | XR_ITS ---
EXAMINATION: XR chest 2V DATE: 04/23/2022 09:11 INDICATION: Malignant neoplasm of lower lobe of right lung. TECHNIQUE: Frontal and lateral views of the chest were obtained. COMPARISON: Chest single view 04/08/2022, chest CT 12/26/2021 FINDINGS: There is a small right pleural effusion. A staple line overlies right lung. There is mild a telectasis at right lung base. No pneumothorax. The heart size is normal. Median sternotomy wires are noted. There is a right internal jugular port with tip at superior cavoatrial junction. IMPRESSION: 1. Small right pleural effusion. 2. Mild atelectasis at right lung base. Reviewed, dictated and finalized at location A.
== END 2022-04-23 08:52 | disposition home or self-care (01) ==
PROVIDERS: PCP Family Medicine Adolescent Medicine
DX: Z09 Encounter for follow-up examination after completed treatment for conditions other than malignant neoplasm (principal); J90 Pleural effusion, not elsewhere classified
CPT/HCPCS: 71046

== ENCOUNTER 2022-07-26 09:00 | Outpatient (RCR) | payer MEDICARE, SELFPAY ==
[2022-07-25 11:25] VITALS: TEMP 35.5
[2022-07-25] MEDS: diphenhydrAMINE HCl CAP 25 MG CAPSULE PO (11:25)
[2022-07-25] MEDS: ACETAMINOPHEN 325 MG TABLET 650 MG PO (11:25)
[2022-07-25 11:26] LABS: Hematocrit 22.2 % (37.0-47.0)
[2022-07-25] MEDS: SODIUM CHLORIDE 0.9% IV 250 ML 30 ML IV CONT (11:30)
--- NOTE | 2022-07-25 13:15 | PC.NURSE ---
NOTIFIED BY BLOOD BANK AT THIS TIME THAT PT. HAS + ANTIBODY SCREEN ON TYPE AND SCREEN THAT CANNOT BE IDENTIFIED IN HOUSE AND MUST BE SENT OUT FOR IDENTIFICATION. BLOOD UNIT WILL NOT BE AVAILABLE FOR TRANFUSION TODAY DURING TIME OF [facility] OPERATIONAL HOURS. NOTIFIED [facility] DIRECTOR, SPENCER CASTRO RN OF SUCH. PER SPENCER, COULD PT. RETURN TO [facility] ON 07/26/22 FOR TRANSFUSION? NOTIFIED RACHEAL FARNSWORTH, DINING ROOM CAPTAIN AT DR. SANDOVAL'S OFFICE. OK FOR PT. TO GET ORDERED 1 UNIT OF PRBC'S TOMORROW, 07/26/22 IF PT. AGREES TO COME BACK TO [facility] FOR TRANSFUSION. THIS RN DISCUSSED PROBLEM AND POSSIBLE SOLUTION W/ PT. PT. AGREES TO RETURN TO [facility] ON 07/26/23 AT 0900 FOR TRANSFUSION OF 1 UNIT PRBC'S. NOTIFIED RACHEAL FARNSWORTH AND SPENCER FARNSWORTH THAT PT. IS AGREEABLE TO COME BACK TOMORROW AT 0900 FOR BLOOD TRANSFUSION. UPDATED BLOOD BANK OF PLAN.
--- NOTE | 2022-07-25 13:45 | PC.NURSE ---
4 PINK TOP TUBES OF BLOOD SENT TO BLOOD BANK FOR ANTIBODY IDENTIFICATION SEND OUT.
[2022-07-25] MEDS: HEPARIN SODIUM LOCK FLUSH 500 UNITS/5 ML VIAL (14:25)
--- NOTE | 2022-07-25 14:35 | PC.NURSE ---
PORT HAS BEEN DEACCESSED PER PROTOCOL AND PT. SENT HOME WITH . SHE WILL RETURN TOMORROW AM, 0900, FOR ORDERED 1 UNIT OF PRBC'S PER DR. SANDOVAL. [facility] STAFF WILL CHECK IN WITH BLOOD BANK UPON DEPARTMENT OPENING IN AM TO VERIFY IF ANTIBODY IDENTIFIED AND BLOOD UNIT AVAILABLE FOR ISSUE TO TRANSFUSE. PT. WILL BE NOTIFIED ) IF BLOOD UNIT NOT AVAILABLE FOR HER RETURN TIME OF 0900 SO A NEW MUTUALLY AGREEABLE TRANSFUSION TIME CAN BE ARRANGED.
--- NOTE | 2022-07-26 07:41 | PC.NURSE ---
orders for pre medications re entered for today's transfusion
[2022-07-26 09:16] VITALS: TEMP 36.4
[2022-07-26] MEDS: ACETAMINOPHEN 325 MG TABLET 650 MG PO (09:16)
[2022-07-26] MEDS: diphenhydrAMINE HCl CAP 25 MG CAPSULE PO (09:18)
[2022-07-26 09:33] VITALS: BP 114/38; PULSE 75; RESP 16; TEMP 36.4; O2SAT 99
[2022-07-26 09:41] VITALS: BP 122/39; PULSE 77; RESP 18; TEMP 36.4; O2SAT 100
[2022-07-26 09:48] VITALS: BP 122/39; PULSE 77; RESP 18; TEMP 36.4; O2SAT 100
[2022-07-26 10:33] VITALS: BP 99/65; PULSE 68; RESP 16; TEMP 36.3; O2SAT 100
[2022-07-26 11:45] VITALS: BP 108/46; PULSE 75; RESP 16; TEMP 36.4; O2SAT 100
--- NOTE | 2022-07-26 13:05 | PC.NURSE ---
patient's transfusion completed, vss, port access removed, cleaned, and bandaid applied. patient re educated on s/s of transfusion reaction. patient verbalizes understanding, print off given with s/s. patient able to ambulate in room. taken by wheelchair to front of hospital while she waits for her to pick her up.
== END 2022-10-23 23:59 | disposition home or self-care (01) ==
LOC: ANHCPCTRAN 09:00
PROVIDERS: PCP Family Medicine Adolescent Medicine; Visit Provider Internal Medicine Hematology & Oncology
DX: C34.31 Malignant neoplasm of lower lobe, right bronchus or lung (principal); D63.1 Anemia in chronic kidney disease
CPT/HCPCS: 36415; 36430; 85014; 85018; 85025; 85055; 86850; 86870; 86880; 86900; 86901; 86902; 86906; 86922; 86971; A9270; J1642; J7050; P9016

== ENCOUNTER 2022-08-12 08:30 | Outpatient (CLI) | payer MEDICARE, SELFPAY ==
--- NOTE | ~2022-08-12 | CT_ITS ---
Clinical Indication: Adenocarcinoma of lung CT Scan of the Chest with Contrast: Technique: Contiguous sections were acquired throughout the chest after intravenous administration of 75 cc of Omnipaque 350. Dose reduction technique was used on this scan by utilizing automated exposu re control and iterative reconstruction technique. The dose-length product (DLP) was 203.47 mGy-cm. COMPARISON: 12/26/2021 Findings: There is no evidence of any significant mediastinal, hilar or axillary lymphadenopathy. No large cent ral pulmonary embolus seen. There is no evidence of aortic dissection or aneurysm. No pericardial eff usion. Patient is status post interval right lower lobectomy. There is pleural thickening and/or small pleur al effusion at the right lung base. Stable 3 mm subpleural left lower lobe pulmonary nodule. Images through the upper abdomen reveal no abnormalities. Impression: No evidence for active malignancy or metastatic disease. Status post right lower lobectomy with pleural thickening or small pleural effusions right lung base. Stable 3 mm subpleural left lower lobe pulmonary nodule. Reviewed, dictated and finalized at [facility]. ET PULLER Impression: No evidence for active malignancy or metastatic disease. Status post right lower lobectomy with pleural thickening or small pleural effu sions right lung base. Stable 3 mm subpleural left lower lobe pulmonary nodule.
== END 2022-08-12 08:31 | disposition home or self-care (01) ==
PROVIDERS: PCP Family Medicine Adolescent Medicine; Visit Provider Internal Medicine Hematology & Oncology
DX: C34.31 Malignant neoplasm of lower lobe, right bronchus or lung (principal); Z90.2 Acquired absence of lung [part of]; R91.1 Solitary pulmonary nodule
CPT/HCPCS: 71260; Q9967

== ENCOUNTER 2022-11-11 08:32 | Outpatient (CLI) | payer MEDICARE, SELFPAY ==
--- NOTE | ~2022-11-11 | CT_ITS ---
EXAMINATION:CT diagnostic chest w con DATE: 11/11/2022 09:15 INDICATION: Adenocarcinoma of lower lobe of right lung. TECHNIQUE: Computed tomography (CT) of the chest was performed with 75 mL Omnipaque 350 intravenous c ontrast. Automated exposure control and iterative reconstruction technique were employed. The dose-le ngth product (DLP) was 153.23 mGy-cm. COMPARISON: Chest CT 08/12/2022, 12/26/2021 FINDINGS: There are changes of right lower lobectomy. There is mild atelectasis bilaterally. There ar e 3 nodules in left lower lobe measuring up to 5 mm, stable from 12/26/2021, likely benign. There is a small right pleural effusion with pleural thickening. The heart size is normal. There are coronary ar franck calcifications. There are changes of coronary artery bypass grafting. No pericardial effusion. T here is a right internal jugular port with tip at superior cavoatrial junction. There is old healed f racture of right 10th rib. There is thoracic kyphosis with chronic anterior wedging of multiple verte bral bodies. There is moderate thoracic spondylosis. IMPRESSION: 1. Stable small right pleural effusion with pleural thickening. 2. No specific evidence of metastatic disease. Reviewed, dictated and finalized at location A.
[2022-11-11 09:10] LABS: Estimated Glomerular Filt Rate 55
[2022-11-11 09:59] LABS: Cholesterol 127 mg/dL (0-200); HDL Direct 29 mg/dL; Triglycerides 80 mg/dL (<150)
[2022-11-11 10:14] LABS: LDL Cholesterol Direct 80 mg/dL
[2022-11-11 10:31] LABS: Thyroid Stimulating Hormone 0.025 uIU/mL (0.465-4.680)
== END 2022-11-11 08:33 | disposition home or self-care (01) ==
PROVIDERS: PCP Family Medicine Adolescent Medicine; Visit Provider Internal Medicine Hematology & Oncology
DX: E03.9 Hypothyroidism, unspecified (principal); E78.00 Pure hypercholesterolemia, unspecified; J90 Pleural effusion, not elsewhere classified
CPT/HCPCS: 71260; 80061; 84443; Q9967

== ENCOUNTER 2023-02-19 08:22 | Outpatient (CLI) | payer MEDICARE, SELFPAY ==
--- NOTE | ~2023-02-19 | CT_ITS ---
Clinical Indication: Lung cancer CT Scan of the Chest, Abdomen, and Pelvis with Contrast: Technique: Contiguous sections were acquired throughout the chest, abdomen, and pelvis after intraven ous administration of 100 cc of Omnipaque 350. Dose reduction technique was used on this scan by sadiq gil automated exposure control and iterative reconstruction technique. The dose-length product (DL P) was 434.49 mGy-cm. COMPARISON: 11/11/2022 Findings: There is no evidence of any significant mediastinal, hilar or axillary lymphadenopathy. There are ath erosclerotic calcifications of the aorta and coronary vessels. No aortic aneurysm or dissection. No c entral pulmonary embolus seen.. There is no evidence of pleural or pericardial effusion. There is evidence of prior right lower lobectomy, with right basilar pleural thickening, which is chr onic in appearance. Stable subcentimeter nodule at the left lung base. Stable additional 3 mm left lo wer lobe pulmonary nodule. The liver, spleen, pancreas, adrenals and left kidney are within normal limits. Small calcified galls tones are present. 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 There are atherosclerotic calcifications of the aorta. No lymphadenopathy. No bowel obstruction or bowel wall thickening. There is no evidence to suggest acute appendicitis. Urinary bladder is unremarkable. No pelvic mass evident. No ascites. There is mild compression deform ity the inferior endplate of L1. Impression: No evidence for active malignancy or metastatic disease. Status post right lower lobectomy with chronic right basilar pleural thickening. Stable subcentimeter left lung nodules. Cholelithiasis. Ptotic and malrotated right kidney. Mild compression deformity of L1. Reviewed, dictated and finalized at [facility]. Impression: No evidence for active malignancy or metastatic disease. Status post right lower lobectomy with chronic right basilar pleural thickening . Stable subcentimeter left lung nodules. Cholelithiasis. Ptotic and malrotated right kidney. Mild compression deformity of L1.
[2023-02-19 08:57] LABS: Estimated Glomerular Filt Rate 44
== END 2023-02-19 08:23 | disposition home or self-care (01) ==
PROVIDERS: PCP Family Medicine Adolescent Medicine; Visit Provider Internal Medicine Hematology & Oncology
DX: C34.31 Malignant neoplasm of lower lobe, right bronchus or lung (principal); K80.20 Calculus of gallbladder without cholecystitis without obstruction
CPT/HCPCS: 71260; 74177; Q9967